=== PATIENT | female | born 1950 | race Caucasian/White ===

== ENCOUNTER 2024-07-16 12:32 | Emergency (ER) | payer OTHER ==
[2024-07-16 13:18] VITALS: BP 133/78; PULSE 78; RESP 18; TEMP 98.3; BMI 36.0
[2024-07-16] MEDS ORDERED: ACETAMINOPHEN 500 MG TABLET (FP) PO ONE (13:23)
[2024-07-16] MEDS ORDERED: IBUPROFEN 400 MG TABLET (FP) PO ONE ×2 (13:24→14:47)
[2024-07-16] MEDS ORDERED: ACETAMINOPHEN 500 MG TABLET (FP) ONE (14:47)
== END 2024-07-16 16:28 | disposition home or self-care (01) ==
LOC: FER 12:32
DX: M25.561 Pain in right knee (principal); M79.661 Pain in right lower leg; M79.662 Pain in left lower leg; M79.89 Other specified soft tissue disorders; X50.1XXA Overexertion from prolonged static or awkward postures, initial encounter
CPT/HCPCS: 73562-TC-RT-FY; 93970-TC; 99284-25